=== PATIENT | male | born 1995 ===

== ENCOUNTER 2025-01-07 11:44 | Emergency (ER) | payer OTHER ==
[2025-01-07 12:18] LABS: BASOPHILS ABSOLUTE AUTO 0.04 10^3/uL (0.00-0.50); BASOPHILS PERCENT AUTO 0.8 % (0-1); EOSINOPHILS ABSOLUTE AUTO 0.04 10^3/uL (0.00-1.50); EOSINOPHILS PERCENT AUTO 0.8 % (0-6); IMMATURE GRAN ABSOLUTE AUTO 0.01 10^3/uL (0.00-0.49); IMMATURE GRAN PERCENT AUTO 0.2 % (0.0-4.9); LYMPHOCYTES ABSOLUTE AUTO 1.71 10^3/uL (0.60-5.00); LYMPHOCYTES PERCENT AUTO 33.2 % (24-44); MONOCYTES ABSOLUTE AUTO 0.41 10^3/uL (0.00-1.50); MONOCYTES PERCENT AUTO 8.0 % (0-10); NEUTROPHILS ABSOLUTE AUTO 2.94 x10^3/uL (1.80-8.00); NEUTROPHILS PERCENT AUTO 57.0 % (41-71); PLATELET COUNT,PLT 226 10^3/uL (150-400); RED BLOOD CELL COUNT 4.99 x10^6/uL (4.50-6.00); WHITE BLOOD CELL COUNT,WBC 5.2 10^3/uL (4.0-11.0)
[2025-01-07 12:35] LABS: ALANINE AMINOTRANSFERASE,ALT 59 U/L (12-78); ASPARTATE AMNIOTRANSFERASE,AST 28 U/L (15-37); BILIRUBIN TOTAL 0.7 mg/dL (0.0-1.0); BLOOD UREA NITROGEN,BUN 18 mg/dL (7-18); CARBON DIOXIDE,CO2 27 mmol/L (21-32); CHLORIDE,CL 102 mEq/L (98-106); CREATININE 1.1 mg/dL (0.7-1.3); EST CRCL DRUG DOSING (CG) 107.44 mL/min; GLUCOSE RANDOM 100 mg/dL (75-99); POTASSIUM,K 3.9 mEq/L (3.5-5.0); PROTEIN TOTAL,TP 7.0 g/dL (6.4-8.2); SODIUM,NA 140 mEq/L (136-145)
[2025-01-07 12:49] LABS: ESTIMATED GFR 94 mL/min (>=60)
[2025-01-07 13:08] LABS: APPEARANCE,URINE CLEAR (CLEAR); GLUCOSE,URINE NEGATIVE (NEGATIVE); OCCULT BLOOD,URINE NEGATIVE (NEGATIVE)
[2025-01-07 13:09] LABS: AMPHETAMINES,URINE NEGATIVE (NEGATIVE); BARBITURATES,URINE NEGATIVE (NEGATIVE); MDMA (ECSTASY), URINE NEGATIVE (NEGATIVE); METHAMPHETAMINES,URINE NEGATIVE (NEGATIVE); OPIATES,URINE NEGATIVE (NEGATIVE); OXYCODONE,URINE NEGATIVE (NEGATIVE); PHENCYCLIDINE,URINE NEGATIVE (NEGATIVE); TCA,URINE NEGATIVE (NEGATIVE)
== END 2025-01-07 13:35 | disposition home or self-care (01) ==
LOC: CC.ED 11:44
DX: I49.3 Ventricular premature depolarization (principal); Z79.899 Other long term (current) drug therapy
CPT/HCPCS: 36415; 80053; 80305-QW; 81003; 83735; 84484; 85025; 93005; 93010; 99284; 99285; J7030